=== PATIENT | male | born 1970 | race Caucasian/White ===

== ENCOUNTER → 2022-08-15 14:02 | Outpatient (BNVA) | payer OTHER, SELFPAY | PROVIDERS: PCP Family Medicine; Visit Provider Surgery | DX: K21.9 Gastro-esophageal reflux disease without esophagitis (principal); Z12.11 Encounter for screening for malignant neoplasm of colon | CPT/HCPCS: 99203 ==

== ENCOUNTER 2022-10-23 05:35 | Day surgery (SDC) | payer OTHER, SELFPAY ==
[2022-10-22 08:37] VITALS: BMI 25.7
[2022-10-23 06:03] VITALS: BP 125/93; PULSE 57; RESP 18; TEMP 36.4; O2SAT 98
[2022-10-23] MEDS: sodium chloride 0.9% 1,000 ML 30 ML IV (06:07)
--- NOTE | 2022-10-23 06:25 | ANES.PREANE2 ---
Pre-Anesthetic Assessment Height/Weight: Height 1.85 m Weight 88.451 kg Temp Pulse Resp BP Pulse Ox O2 Del Method 97.5 F L 57 L 18 125/93 98 10/23/22 06:03 10/23/22 06:03 10/23/22 06:03 10/23/22 06:03 10/23/22 06:03 10/23/22 06:03 Preop Diagnosis: Acid reflux and screening colonoscopy Operation Date: 10/23/22 07:00 Proposed Procedures p 76646- EGD 13013 - Colonoscopy K21.9,Z12.11(Not Applicable) - Uriah Wen MD s Colonoscopy(Not Applicable) - Uriah Wen MD Familial anesthetic complications: None Was Beta Estephanie taken within 24 hours: N/A Was Clonidine taken within 24 hours: N/A Last intake: Intake Last Liquid Date 10/22/22 Last Liquid Time 22:00 Last Solid Date 10/21/22 Last Solid Time 18:00 Social Alcohol (Social) and No tobacco (Quit 12 years ago) Exam alert, oriented x 3, clear to auscultation bilaterally and regular rate & rhythm Airway Submandibular: within normal limits Cervical ROM: within normal limits Mallampati: Class III Dentition: chipped and full History/ROS No significant history except as noted and No significant complaints Pulmonary Sleep Apnea Seasonal Allergies CV/HEM Hypertension None reported Hepatic None reported GI Gastroesophageal Reflux Disease Metabolic Thyroid Disease Musc/skel Osteoarthritis/DJD Neuropsych None reported Anesthetic Plan ASA status: 2 Anesthesia: Anesthesia Evaluation, General and MAC Risk of > 500 ml blood loss (7ml/kg in children): No Medications/Allergies Home Medications Medication Instructions Recorded Confirmed Last Taken Type citalopram 40 mg tablet 40 mg PO DAILY 08/23/21 10/22/22 10/22/22 History levothyroxine 50 mcg capsule 50 mcg PO DAILY 08/23/21 10/22/22 10/22/22 History Allergies Allergy/AdvReac Type Severity Reaction Status Date / Time No Known Allergies Allergy Verified 10/23/22 06:29 Current Medications Generic Name Dose Route Start Last Admin Trade Name Freq PRN Reason Stop Dose Admin Sodium Chloride 1,000 mls @ 30 mls/hr 10/23/22 05:45 10/23/22 06:07 Sodium Chloride 0.9% IV 12/07/22 05:44 30 mls/hr .Q24H MELANIE Administration PFSH Anesthesia Medical History Anxiety Bilateral inguinal hernia Deviated septum Family history of premature CAD GERD (gastroesophageal reflux disease) Hypothyroid Irritable bowel syndrome with diarrhea PTSD (post-traumatic stress disorder) Sleep apnea Stress Social History Smoking and tobacco status: former smoker Data Anesthesia Cardiac Studies: No Data to Display
--- NOTE | 2022-10-23 06:29 | P.HP_ITS ---
Same Day Surgery H&P Indication for Procedure/HPI DATE OF PROCEDURE: October 23, 2022 CHIEF COMPLAINT/INDICATIONFOR SURGICAL PROCEDURE: Worsening acid reflux PREOP DIAGNOSIS: Acid reflux and screening colonoscopy PLANNED PROCEDURE: Operation Date: 10/23/22 07:00 Proposed Procedures p [id number]- EGD 19656 - Colonoscopy K21.9,Z12.11(Not Applicable) - Uriah Wen MD s Colonoscopy(Not Applicable) - Uriah Wen MD 08/15/2022 This is a pleasant 51 years old gentleman referred to my practice with history of worsening acid reflux in spite of being on PPI therapy for more than 6 months.? Patient reports that he does not have any bleeding per rectum or history of colon cancer.? Is referred to my practice for further evaluation potential management.? Patient reports that he never had a screening colonoscopy per his description. 10/23/2022 Patient comes today for diagnostic EGD and screening colonoscopy ROS All systems have been reviewed negative except as for the above or per problem list. Medications/Allergies* Home Medications Medication Instructions Recorded Confirmed Type citalopram 40 mg tablet 40 mg PO DAILY 08/23/21 10/22/22 History levothyroxine 50 mcg capsule 50 mcg PO DAILY 08/23/21 10/22/22 History Allergies/Adverse Reactions Allergy/AdvReac Type Severity Reaction Status Date / Time No Known Allergies Allergy Verified 10/23/22 06:29 Current Medications: Generic Name Dose Route Start Last Admin Trade Name Freq PRN Reason Stop Dose Admin Sodium Chloride 1,000 mls @ 30 mls/hr 10/23/22 05:45 10/23/22 06:07 Sodium Chloride 0.9% IV 10/24/22 05:44 30 mls/hr .Q24H MELANIE Administration Pertinent History/Comorbid Conditions* Medical History (Updated 08/16/22 @ 17:43 by Uriah Wen MD) Anxiety Bilateral inguinal hernia Deviated septum Family history of premature CAD GERD (gastroesophageal reflux disease) Hypothyroid Irritable bowel syndrome with diarrhea PTSD (post-traumatic stress disorder) Sleep apnea Stress Social History Smoking and tobacco status: former smoker Pertinent Exam Findings alert, oriented x 3, regular rate & rhythm and procedure specific exam findings (Abdominal exam nontender nondistended soft) Recommendations Surgery/Procedure today (EGD and colonoscopy with possible biopsy) Coding Level of Care Code Acute Pasteurizing Supervisor for Chg Fwd
[2022-10-23 07:16] VITALS: BP 137/75; PULSE 74; RESP 18; TEMP 36.4; O2SAT 96
[2022-10-23 07:41] VITALS: BP 140/99; PULSE 76; RESP 18; O2SAT 97
--- NOTE | 2022-10-23 16:29 | ANE.PACU2 ---
Inpatient post-anesthesia follow up: Airway intact: Yes Vital signs: Temperature 97.6 F Pulse Rate 76 Respiratory Rate 18 Blood Pressure 140/99 Pulse Oximetry 97 Oxygen Delivery Me thod Room Air Oxygen Flow Rate Fraction of Inspir ed Oxygen Hydration adequate: Yes Nausea and vomiting: No Pain level: 2 Mental status: Baseline
== END 2022-10-23 07:43 | disposition home or self-care (01) ==
PROVIDERS: PCP Family Medicine; Visit Provider Surgery
PROC: 0DJ08ZZ Inspection of Upper Intestinal Tract, Via Natural or Artificial Opening Endoscopic (ICD-10-PCS; CPT 43235; principal; 2022-10-23 07:00)
PROC: 0DJD8ZZ Inspection of Lower Intestinal Tract, Via Natural or Artificial Opening Endoscopic (ICD-10-PCS; CPT 45378; 2022-10-23 07:00)
DX: Z12.11 Encounter for screening for malignant neoplasm of colon (principal); K21.00 Gastro-esophageal reflux disease with esophagitis, without bleeding; K57.30 Diverticulosis of large intestine without perforation or abscess without bleeding; K29.50 Unspecified chronic gastritis without bleeding; B96.81 Helicobacter pylori [H. pylori] as the cause of diseases classified elsewhere; F41.9 Anxiety disorder, unspecified; E03.9 Hypothyroidism, unspecified; G47.30 Sleep apnea, unspecified; I10 Essential (primary) hypertension
CPT/HCPCS: 43239; 45378; 88305; 88342; J2704; J3490; J7030

== ENCOUNTER → 2022-10-30 15:30 | Outpatient (BNVA) | payer OTHER, SELFPAY | PROVIDERS: PCP Family Medicine; Visit Provider Surgery | DX: Z09 Encounter for follow-up examination after completed treatment for conditions other than malignant neoplasm (principal); K57.31 Diverticulosis of large intestine without perforation or abscess with bleeding; K20.90 Esophagitis, unspecified without bleeding | CPT/HCPCS: 99212 ==